=== PATIENT | male | born 1985 | race Caucasian/White ===

== ENCOUNTER 2017-04-07 14:16 | Day surgery (SDC) | payer OTHER ==
[~2017-04-07 14:16] MED LIST: CEFAZOLIN 1 GM INJ; EPHEDrine SULFATE 50 MG/5 ML SYG
[2017-04-07] MEDS ORDERED: MIDAZOLAM 1 MG/ML 2 ML INJ ×2 (18:31)
[2017-04-07] MEDS ORDERED: PROPOFOL 20 ML (18:31)
[2017-04-07] MEDS ORDERED: ROCURONIUM 50 MG INJ ×2 (18:31→19:41)
[2017-04-07] MEDS ORDERED: ROPIVACAINE 0.5 % 30 ML VIAL (18:31)
[2017-04-07] MEDS ORDERED: ACETAMINOPHEN 1000MG/100ML IV 100 ML (19:41)
[2017-04-07] MEDS ORDERED: HYDROmorphONE 2 MG/ML SYG (19:42)
[2017-04-07] MEDS: SODIUM CHLORIDE 0.9% 1L IRRIG IRR (20:00)
[2017-04-07] MEDS ORDERED: ONDANSETRON 4 MG INJ (21:00)
[2017-04-07] MEDS ORDERED: KETOROLAC 30 MG INJ (21:00)
[2017-04-07] MEDS ORDERED: METOCLOPRAMIDE 10 MG INJ (21:00)
[2017-04-07] MEDS ORDERED: DEXAMETHASONE 4 MG/ML 1 ML INJ (21:00)
[2017-04-07] MEDS ORDERED: BACITRACIN/POLYMYXIN 28.35 GM OINT TOP (21:03)
[2017-04-07] MEDS: BACITRACIN 50000 UNITS INJ IRR (21:36)
[2017-04-07] MEDS: BACITRACIN/POLYMYXIN 0.9 GM OINT TOP (21:36)
[2017-04-07] MEDS ORDERED: FENTAnyl 50 MCG/ML VIAL IV ×3 (22:00)
[2017-04-07] MEDS ORDERED: MEPERIDINE 25 MG INJ IV (22:00)
[2017-04-07] MEDS ORDERED: OXYCODONE/ACETAMINOPHEN (5/325) TAB PO ×2 (22:00)
[2017-04-07] MEDS ORDERED: DIPHENHYDRAMINE 50 MG INJ IV (22:00)
[2017-04-07] MEDS ORDERED: METOCLOPRAMIDE 10 MG INJ IV (22:00)
[2017-04-07] MEDS ORDERED: HYDROmorphONE (0.2 MG/ML) 10ML SYG IV ×3 (22:00)
[2017-04-07] MEDS ORDERED: morphine (1 MG/ML) 10ML SYRINGE IV ×3 (22:00)
[2017-04-07] MEDS ORDERED: ONDANSETRON 4 MG INJ IV (22:00)
[2017-04-07] MEDS ORDERED: hydrALAzine 20 MG INJ IV (22:00)
[2017-04-07] MEDS ORDERED: EPHEDrine SULFATE 50 MG/5 ML SYG IV (22:00)
[2017-04-07] MEDS ORDERED: LABETALOL HCL 20MG INJ IV (22:00)
[2017-04-07] MEDS ORDERED: SUGAMMADEX SODIUM 200 MG/2 ML VIAL IV (22:05)
== END 2017-04-07 23:40 | disposition home or self-care (01) ==
LOC: SDS 14:16
DX: S82.841A Displaced bimalleolar fracture of right lower leg, initial encounter for closed fracture (principal); S82.451A Displaced comminuted fracture of shaft of right fibula, initial encounter for closed fracture; S93.431A Sprain of tibiofibular ligament of right ankle, initial encounter; W03.XXXA Other fall on same level due to collision with another person, initial encounter; Y93.66 Activity, soccer; Y92.322 Soccer field as the place of occurrence of the external cause; M24.071 Loose body in right ankle
CPT/HCPCS: 27814; 73610-RT; 82306